=== PATIENT | female | born 1995 | race African-American/Black ===

== ENCOUNTER 2023-09-29 11:35 | Emergency (ER) | payer OTHER ==
[~2023-09-29] VITALS: Ht 165.1 cm; Wt 90.7 kg
[2023-09-29 11:41] VITALS: O2SAT 99
[2023-09-29 13:40] LABS: BASOPHILS % 0.5 % (0.0-2.0); EOSINOPHILS % 2.2 % (0.0-5.0); HEMATOCRIT. 40.6 % (36.0-48.0); HEMOGLOBIN. 13.2 g/dL (12.0-16.0); LYMPHOCYTES % 25.8 % (20.0-50.0); MEAN CORPUSCULAR HEMOGLOBIN 29.5 pg (28.0-32.0); MEAN CORPUSCULAR HGB CONC 32.4 g/dL (31.0-37.0); MEAN CORPUSCULAR VOLUME 90.9 fL (81.0-99.0); MONOCYTES % 7.3 % (2.0-8.0); NEUTROPHILS % 64.2 % (40.0-76.0); PLATELET 299 x1000/uL (130-400); RED BLOOD CELL COUNT 4.47 mill/uL (4.2-5.4); RED CELL DISTRIBUTION WIDTH 14.4 % (11.6-14.6); WHITE BLOOD COUNT 10.4 x1000/uL (4.5-11.0)
[2023-09-29 13:51] LABS: CHLORIDE 107 mEq/L (98-107); POTASSIUM 3.2 mEq/L (3.5-5.1); SODIUM 140 mEq/L (136-145)
[2023-09-29 13:52] LABS: CALCIUM 9.8 mg/dL (8.7-10.4); CARBON DIOXIDE 26 mEq/L (21-32)
[2023-09-29 13:57] LABS: CREATININE 0.7 mg/dL (0.6-1.0); GLUCOSE 99 mg/dL (70-105)
[2023-09-29 13:58] LABS: ETHANOL BLOOD < 10 mg/dL (<10)
[2023-09-29 13:59] LABS: ACETAMINOPHEN < 2 ug/mL (10-30)
[2023-09-29 14:04] LABS: UREA NITROGEN BLOOD < 5 mg/dL (9-23)
[2023-09-29] MEDS ORDERED: POTASSIUM CHLORIDE 20MEQ/PACKET PO ONE (14:15)
[2023-09-29 16:14] LABS: CLARITY URINE CLOUDY (CLEAR); COLOR URINE YELLOW (YELLOW); GLUCOSE URINE NEGATIVE (NEGATIVE); KETONES URINE TRACE (NEGATIVE); LEUKOCYTE ESTERASE URINE TRACE (NEGATIVE); NITRITE URINE NEGATIVE (NEGATIVE); OCCULT BLOOD URINE TRACE (NEGATIVE); PH URINE 5.5 (4.5-8.0); PROTEIN URINE TRACE (NEGATIVE); SPECIFIC GRAVITY URINE 1.025 (1.005-1.030)
[2023-09-29 16:22] LABS: *AMPHETAMINES SCREEN URINE NEGATIVE (NEGATIVE); *BARBITURATES SCREEN URINE NEGATIVE (NEGATIVE); *BENZODIAZEPINES SCREEN URINE NEGATIVE (NEGATIVE); *COCAINE SCREEN URINE NEGATIVE (NEGATIVE); METHADONE URINE SCREEN NEGATIVE (NEGATIVE); OPIATES URINE SCREEN NEGATIVE (NEGATIVE)
[2023-09-29 16:23] LABS: CANNABINOID URINE SCREEN NEGATIVE (NEGATIVE); ECSTASY MDMA SCREEN URINE NEGATIVE (NEGATIVE); PHENCYCLIDINE URINE SCREEN NEGATIVE (NEGATIVE)
[2023-09-29] MEDS: POTASSIUM CHLORIDE 20MEQ/PACKET PO NR (16:52)
[2023-09-29 16:53] LABS: BACTERIA URINE 2+; SQUAMOUS EPITHELIAL CELL URINE 2+ /lpf (RARE/1+)
[2023-09-29] MEDS: NITROFURANTOIN 100MG M/M CAPSULE PO ONE (18:06)
[2023-09-30] MEDS: CALCIUM CARBONATE 500MG TABLET CHEW PO ONE (00:03)
[2023-09-30] MEDS: LORAZEPAM 0.5MG TABLET PO ONE (00:20)
[2023-09-30] MEDS: NITROFURANTOIN 100MG M/M CAPSULE PO SCH (09:24)
[2023-09-30] MEDS: QUETIAPINE FUMARATE 25MG TABLET PO SCH (17:48)
[2023-09-30 19:11] VITALS: BP 112/69; PULSE 88; RESP 16; TEMP 98.1
[2023-09-30] MEDS: LORAZEPAM 1MG TABLET PO ONE (21:22)
[2023-10-01] MEDS ORDERED: NITR-87 MT (09:53)
[2023-10-01] MEDS ORDERED: QUET25TA MT (09:53)
== END 2023-10-01 10:28 | disposition home or self-care (01) ==
LOC: ER 11:35
DX: R45.850 Homicidal ideations (principal); F41.9 Anxiety disorder, unspecified; F32.A Depression, unspecified; D64.9 Anemia, unspecified
CPT/HCPCS: 80305; 80048; 81003; 80307; 80329; 80320; 85025; 36415; 99285; Z7610; G0480